=== PATIENT | male | born 1935 | race Hispanic/Latino ===

== ENCOUNTER 2022-06-10 09:41 | Inpatient (IN) | payer OTHER ==
[~2022-06-10] VITALS: Ht 162.6 cm; Wt 75.3 kg
[~2022-06-10 09:41] MED LIST: ETOMIDATE 20MG VIAL IVP ONE; ROCURONIUM BROMIDE 10MG/1ML 5ML VL IV ONE
[2022-06-10 10:14] LABS: ABG HCO3 18.8 mmol/L (21.0-28.0); ABG OXYGEN SATURATION 94.2 % (95.0-99.0); ABG PCO2 31 mmHg (35-48)
[2022-06-10 10:21] LABS: BASOPHILS % (AUTO) 0.3 % (0.0-5.0); EOSINOPHILS % (AUTO) 2.2 % (0.0-8.0); LYMPHOCYTES % (AUTO) 3.7 % (21.0-51.0); MEAN CORPUSCULAR HEMOGLOBIN 28.9 pg (27.0-33.0); MEAN CORPUSCULAR HGB CONC 34.1 g/dL (32.0-36.0); MEAN CORPUSCULAR VOLUME 84.9 fL (79-99); MONOCYTES % (AUTO) 5.7 % (3.0-13.0); NEUTROPHILS % (AUTO) 87.4 % (40.0-77.0); PLATELET COUNT (AUTO) 281 K/uL (130-400); RED BLOOD CELL COUNT(AUTO) 3.18 MIL/uL (4.50-6.20); RED CELL DISTRIBUTION WIDTH 13.9 % (11.0-15.5); WHITE BLOOD COUNT (AUTO) 11.9 K/uL (4.8-10.8)
[2022-06-10 10:30] LABS: CREATININE 3.1 mg/dL (0.5-1.5); POTASSIUM 4.2 mmol/L (3.5-5.1)
[2022-06-10 10:34] LABS: ALBUMIN 2.5 g/dL (3.5-5.0); TOTAL PROTEIN, SERUM 6.7 g/dL (6.0-8.3)
[2022-06-10] MEDS ORDERED: DEXAMETHASONE SOD PHOSPHATE 4 MG/ML 1ML VIAL IVP ONE (11:30)
[2022-06-10] MEDS ORDERED: ENOXAPARIN SODIUM 40 MG/0.4 ML SYRINGE SQ ONE (11:30)
[2022-06-10] MEDS ORDERED: 0.9%NACL 1000ML 1,000 ML IV ONE (11:30)
[2022-06-10] MEDS ORDERED: LEVO50CA4 PO (12:17)
[2022-06-10] MEDS ORDERED: APIX2.5T PO (12:17)
[2022-06-10] MEDS ORDERED: LABE200T7 PO (12:17)
[2022-06-10] MEDS ORDERED: ASCO500P18 PO (12:17)
[2022-06-10] MEDS ORDERED: AMLO-258 PO (12:17)
[2022-06-10] MEDS ORDERED: ZINC220T4 PO (12:17)
[2022-06-10] MEDS ORDERED: PRAV20TA4 PO (12:17)
[2022-06-10] MEDS ORDERED: ISOS20TA85 PO (12:17)
[2022-06-10] MEDS ORDERED: POTA99TA25 PO (12:17)
[2022-06-10] MEDS ORDERED: LISI20TA24 PO (12:17)
[2022-06-10] MEDS ORDERED: CHOL125C7 PO (12:20)
[2022-06-10] MEDS ORDERED: HYDRALAZINE 20MG/ML VIAL IV PRN (13:30)
[2022-06-10] MEDS ORDERED: ONDANSETRON 4MG INJ IVP PRN (13:30)
[2022-06-10] MEDS ORDERED: LABETALOL 20MG SYG IV PRN (13:30)
[2022-06-10] MEDS ORDERED: LACTULOSE 20 GM/30 ML UDCUP PO PRN (13:30)
[2022-06-10] MEDS ORDERED: ACETAMINOPHEN 325 MG TAB PO PRN (13:30)
[2022-06-10 13:53] LABS: APPEARANCE,URINE CLEAR (CLEAR); BILIRUBIN,URINE NEGATIVE (NEGATIVE); COLOR,URINE LIGHT-YELLOW (YELLOW); GLUCOSE, URINE (UA) NEGATIVE (NEGATIVE); KETONES,URINE NEGATIVE (NEGATIVE); LEUKOCYTE ESTERASE ,URINE NEGATIVE Leu/uL (NEGATIVE); NITRATE,URINE NEGATIVE (NEGATIVE); OCCULT BLOOD,URINE NEGATIVE (NEGATIVE); PROTEIN,URINE 10 mg/dL (NEGATIVE); UROBILINOGEN,URINE 0.2 mg/dL (0.2-1.0)
[2022-06-10] MEDS: IPRATROPIUM/ALBUTEROL SULFATE 3 ML SOLUTION IH SCH ×3 (13:59→22:00)
[2022-06-10] MEDS: SOLU-MEDROL 125MG VIAL IVP SCH ×2 (14:29→20:21)
[2022-06-10 15:19] VITALS: BP 162/72
[2022-06-10] MEDS: INSULIN HUMULIN R 100 UNIT/ML 3ML SQ SCH ×2 (15:52→20:24)
[2022-06-10] MEDS: CEFTRIAXONE 1G VIAL IVP SCH (17:01)
[2022-06-10 19:23] VITALS: BP 156/65
[2022-06-10] MEDS: HEPARIN 5,000 UNIT VIAL SQ SCH (20:22)
[2022-06-10 23:10] VITALS: BP 145/78
[2022-06-11] VITALS (7 sets, daily range): BP systolic 110–167; BP diastolic 45–79
[2022-06-11] MEDS: IPRATROPIUM/ALBUTEROL SULFATE 3 ML SOLUTION IH SCH ×6 (02:00→21:16)
[2022-06-11 03:58] LABS: BASOPHILS % (AUTO) 0.1 % (0.0-5.0); HEMATOCRIT 27.2 % (42-54); LYMPHOCYTES % (AUTO) 2.8 % (21.0-51.0); MEAN CORPUSCULAR HEMOGLOBIN 29.3 pg (27.0-33.0); MEAN CORPUSCULAR HGB CONC 34.2 g/dL (32.0-36.0); MEAN CORPUSCULAR VOLUME 85.8 fL (79-99); MONOCYTES % (AUTO) 1.8 % (3.0-13.0); NEUTROPHILS % (AUTO) 94.6 % (40.0-77.0); PLATELET COUNT (AUTO) 333 K/uL (130-400); RED BLOOD CELL COUNT(AUTO) 3.17 MIL/uL (4.50-6.20)
[2022-06-11 04:12] LABS: % IRON SATURATION 6.1 % (30-44)
[2022-06-11 04:20] LABS: B-TYPE NATRIURETIC PEPTIDE 852 pg/mL (0-100)
[2022-06-11] MEDS: SOLU-MEDROL 125MG VIAL IVP SCH ×3 (05:00→21:53)
[2022-06-11 05:02] LABS: CREATININE 2.7 mg/dL (0.5-1.5); MAGNESIUM 2.3 mg/dL (1.80-2.40); PHOSPHORUS 4.3 mg/dL (2.5-4.9); POTASSIUM 4.4 mmol/L (3.5-5.1); THYROID STIMULATING HORMONE 0.85 uIU/mL (0.36-3.74); URIC ACID 9.4 mg/dL (2.6-7.2)
[2022-06-11] MEDS: INSULIN HUMULIN R 100 UNIT/ML 3ML SQ SCH ×4 (05:33→21:54)
[2022-06-11] MEDS: AZITHROMYCIN 500MG+NS 250ML IV SCH (08:04)
[2022-06-11] MEDS: POLYETHYLENE GLYCOL 3350 17 GM POWD.PACK PO SCH (08:04)
[2022-06-11] MEDS: HEPARIN 5,000 UNIT VIAL SQ SCH ×2 (08:05→21:51)
[2022-06-11 08:35] LABS: APPEARANCE,URINE CLEAR (CLEAR); BILIRUBIN,URINE NEGATIVE (NEGATIVE); COLOR,URINE LIGHT-YELLOW (YELLOW); GLUCOSE, URINE (UA) NEGATIVE (NEGATIVE); KETONES,URINE NEGATIVE (NEGATIVE); LEUKOCYTE ESTERASE ,URINE NEGATIVE Leu/uL (NEGATIVE); NITRATE,URINE NEGATIVE (NEGATIVE); OCCULT BLOOD,URINE NEGATIVE (NEGATIVE); PH,URINE 5.5 (5.0-8.0); PROTEIN,URINE 70 mg/dL (NEGATIVE); RBC,URINE 0-1 /HPF (0-1); UROBILINOGEN,URINE 0.2 mg/dL (0.2-1.0); WBC,URINE 0-1 /HPF (0-1)
[2022-06-11 08:37] LABS: CREATININE,URINE RANDOM 79 mg/dL (30-135)
[2022-06-11] MEDS ORDERED: ENOXAPARIN SODIUM 30 MG/0.3 ML SQ SCH (09:00)
[2022-06-11] MEDS ORDERED: CEFTRIAXONE 1G VIAL IVP SCH (09:00)
[2022-06-11 09:08] LABS: SODIUM,URINE RANDOM < 14 mmol/l (40-220)
[2022-06-11] MEDS: CEFTRIAXONE 1G VIAL IVP SCH (16:56)
[2022-06-11] MEDS: GUAIFENESIN-CODEINE 5 ML SYRUP PO SCH (21:51)
[2022-06-12] MEDS: IPRATROPIUM/ALBUTEROL SULFATE 3 ML SOLUTION IH SCH ×5 (01:16→23:12)
[2022-06-12 04:00] VITALS: BP 145/75
[2022-06-12 04:13] LABS: ABG BASE EXCESS -2.9 mmol/L (-2.0-3.0); ABG HCO3 20.8 mmol/L (21.0-28.0); ABG OXYGEN SATURATION 90.9 % (95.0-99.0); ABG PCO2 33 mmHg (35-48)
[2022-06-12 04:55] LABS: HEMATOCRIT 26.5 % (42-54); MEAN CORPUSCULAR HEMOGLOBIN 29.6 pg (27.0-33.0); MEAN CORPUSCULAR HGB CONC 34.7 g/dL (32.0-36.0); MEAN CORPUSCULAR VOLUME 85.2 fL (79-99); PLATELET COUNT (AUTO) 399 K/uL (130-400); RED BLOOD CELL COUNT(AUTO) 3.11 MIL/uL (4.50-6.20); RED CELL DISTRIBUTION WIDTH 14.1 % (11.0-15.5); WHITE BLOOD COUNT (AUTO) 22.6 K/uL (4.8-10.8)
[2022-06-12 05:05] LABS: ALBUMIN 2.5 g/dL (3.5-5.0); MAGNESIUM 2.8 mg/dL (1.80-2.40); PHOSPHORUS 4.7 mg/dL (2.5-4.9); POTASSIUM 4.2 mmol/L (3.5-5.1); TOTAL PROTEIN, SERUM 6.6 g/dL (6.0-8.3)
[2022-06-12] MEDS: SOLU-MEDROL 125MG VIAL IVP SCH ×3 (05:07→21:06)
[2022-06-12] MEDS: INSULIN HUMULIN R 100 UNIT/ML 3ML SQ SCH ×4 (05:56→21:08)
[2022-06-12 06:05] LABS: BAND NEUTROPHILS % (MANUAL) 1 % (0-2); MONOCYTES % (MANUAL) 4 % (2-9); SEGMENTED NEUTROPHILS % 95 % (40-70)
[2022-06-12 06:06] LABS: MAN.DIFF COMMENT-IMPRESSION MANUAL DIFFERENTIAL; PLATELET MORPHOLOGY COMMENT ADEQUATE
[2022-06-12 08:00] VITALS: BP 163/61
[2022-06-12] MEDS ORDERED: IRON SUCROSE COMPLEX 100 MG in 0.9%NACL 50ML 50 ML IV SCH (09:00)
[2022-06-12] MEDS: HEPARIN 5,000 UNIT VIAL SQ SCH ×2 (10:15→21:07)
[2022-06-12] MEDS: AZITHROMYCIN 500MG+NS 250ML IV SCH (10:19)
[2022-06-12] MEDS: POLYETHYLENE GLYCOL 3350 17 GM POWD.PACK PO SCH (10:20)
[2022-06-12] MEDS: GUAIFENESIN-CODEINE 5 ML SYRUP PO SCH ×2 (10:21→21:05)
[2022-06-12] MEDS: IRON SUCROSE COMPLEX 100 MG/5 ML VIAL IVP SCH (10:21)
[2022-06-12 13:25] VITALS: BP 149/67
[2022-06-12 16:47] VITALS: BP 155/71
[2022-06-12] MEDS: CEFTRIAXONE 1G VIAL IVP SCH (17:45)
[2022-06-12 20:00] VITALS: BP 164/65
[2022-06-12 23:24] VITALS: BP 160/68
[2022-06-13 03:34] VITALS: BP 155/72
[2022-06-13 04:49] LABS: BASOPHILS % (AUTO) 0.2 % (0.0-5.0); HEMATOCRIT 28.2 % (42-54); MEAN CORPUSCULAR HEMOGLOBIN 28.7 pg (27.0-33.0); MONOCYTES % (AUTO) 1.8 % (3.0-13.0); NEUTROPHILS % (AUTO) 95.5 % (40.0-77.0); PLATELET COUNT (AUTO) 467 K/uL (130-400); RED BLOOD CELL COUNT(AUTO) 3.24 MIL/uL (4.50-6.20); RED CELL DISTRIBUTION WIDTH 14.6 % (11.0-15.5); WHITE BLOOD COUNT (AUTO) 20.6 K/uL (4.8-10.8)
[2022-06-13] MEDS: SOLU-MEDROL 125MG VIAL IVP SCH ×3 (04:58→20:45)
[2022-06-13 05:05] LABS: ALBUMIN 2.4 g/dL (3.5-5.0); CREATININE 1.9 mg/dL (0.5-1.5); TOTAL PROTEIN, SERUM 6.4 g/dL (6.0-8.3)
[2022-06-13] MEDS: IPRATROPIUM/ALBUTEROL SULFATE 3 ML SOLUTION IH SCH ×2 (06:20→11:15)
[2022-06-13] MEDS: INSULIN HUMULIN R 100 UNIT/ML 3ML SQ SCH ×4 (06:48→20:44)
[2022-06-13 07:00] VITALS: BP 155/66
[2022-06-13] MEDS: AZITHROMYCIN 500MG+NS 250ML IV SCH (09:13)
[2022-06-13] MEDS: FAMOTIDINE 20MG VIAL IV SCH (09:13)
[2022-06-13] MEDS: IRON SUCROSE COMPLEX 100 MG/5 ML VIAL IVP SCH (09:15)
[2022-06-13] MEDS: POLYETHYLENE GLYCOL 3350 17 GM POWD.PACK PO SCH (09:17)
[2022-06-13] MEDS: GUAIFENESIN-CODEINE 5 ML SYRUP PO SCH ×2 (09:17→20:45)
[2022-06-13] MEDS: HEPARIN 5,000 UNIT VIAL SQ SCH ×2 (09:19→20:47)
[2022-06-13 11:00] VITALS: BP 156/73
[2022-06-13] MEDS: CEFTRIAXONE 2GM VIAL IVP SCH (15:20)
[2022-06-13 16:00] VITALS: BP_SYST 167; BP_SYST 179; BP_DIAS 83; BP_DIAS 84
[2022-06-13] MEDS ORDERED: METOPROLOL TARTRATE 1 MG/ML 5ML VIAL IV ONE ×2 (17:05→17:30)
[2022-06-13] MEDS ORDERED: IPRATROPIUM 0.5 MG/2.5 ML INH IH PRN (17:30)
[2022-06-13 17:36] LABS: CREATININE 1.7 mg/dL (0.5-1.5); POTASSIUM 4.1 mmol/L (3.5-5.1)
[2022-06-13 17:40] LABS: ALBUMIN 2.6 g/dL (3.5-5.0); TOTAL PROTEIN, SERUM 6.7 g/dL (6.0-8.3)
[2022-06-13 19:56] VITALS: BP 144/81
[2022-06-13] MEDS: METOPROLOL TARTRATE 25 MG TAB PO SCH (20:45)
[2022-06-13 23:40] VITALS: BP 151/84
[2022-06-14 03:37] LABS: BASOPHILS % (AUTO) 0.1 % (0.0-5.0); HEMATOCRIT 29.6 % (42-54); LYMPHOCYTES % (AUTO) 1.2 % (21.0-51.0); MEAN CORPUSCULAR HGB CONC 33.4 g/dL (32.0-36.0); MEAN CORPUSCULAR VOLUME 86.8 fL (79-99); NEUTROPHILS % (AUTO) 94.9 % (40.0-77.0); PLATELET COUNT (AUTO) 463 K/uL (130-400); RED BLOOD CELL COUNT(AUTO) 3.41 MIL/uL (4.50-6.20); RED CELL DISTRIBUTION WIDTH 14.8 % (11.0-15.5); WHITE BLOOD COUNT (AUTO) 20.3 K/uL (4.8-10.8)
[2022-06-14 03:49] LABS: CREATININE 1.6 mg/dL (0.5-1.5); POTASSIUM 4.3 mmol/L (3.5-5.1)
[2022-06-14 04:00] VITALS: BP 133/89
[2022-06-14] MEDS: INSULIN HUMULIN R 100 UNIT/ML 3ML SQ SCH ×4 (05:09→20:20)
[2022-06-14] MEDS: SOLU-MEDROL 125MG VIAL IVP SCH ×3 (05:41→20:24)
[2022-06-14] MEDS: METOPROLOL TARTRATE 25 MG TAB PO SCH ×2 (06:25→20:21)
[2022-06-14] MEDS: POLYETHYLENE GLYCOL 3350 17 GM POWD.PACK PO SCH (07:49)
[2022-06-14] MEDS: GUAIFENESIN-CODEINE 5 ML SYRUP PO SCH ×2 (07:51→20:21)
[2022-06-14] MEDS: HEPARIN 5,000 UNIT VIAL SQ SCH (07:51)
[2022-06-14] MEDS: IRON SUCROSE COMPLEX 100 MG/5 ML VIAL IVP SCH (07:52)
[2022-06-14] MEDS: AZITHROMYCIN 500MG+NS 250ML IV SCH (07:52)
[2022-06-14] MEDS: FAMOTIDINE 20MG VIAL IV SCH (07:52)
[2022-06-14 08:00] VITALS: BP 142/86
[2022-06-14 12:00] VITALS: BP 136/78
[2022-06-14 16:00] VITALS: BP 128/76
[2022-06-14] MEDS: CEFTRIAXONE 2GM VIAL IVP SCH (17:30)
[2022-06-14 20:00] VITALS: BP 169/75
[2022-06-14] MEDS: APIXABAN 2.5 MG TABLET PO SCH (20:21)
[2022-06-14] MEDS: NICOTINE 21 MG/ 24 HR PATCH TD SCH ×2 (20:21→20:42)
[2022-06-14 23:57] VITALS: BP 173/86
[2022-06-15] VITALS (7 sets, daily range): BP systolic 143–188; BP diastolic 65–89
[2022-06-15] MEDS ORDERED: ALBUTEROL INHALER 90MCG/INH IH PRN (01:40)
[2022-06-15] MEDS ORDERED: ALBUTEROL INHALER 90MCG/INH IH ONE (01:42)
[2022-06-15 03:50] LABS: BASOPHILS % (AUTO) 0.1 % (0.0-5.0); HEMATOCRIT 28.5 % (42-54); LYMPHOCYTES % (AUTO) 1.3 % (21.0-51.0); MEAN CORPUSCULAR HEMOGLOBIN 28.8 pg (27.0-33.0); MEAN CORPUSCULAR VOLUME 87.4 fL (79-99); MONOCYTES % (AUTO) 2.5 % (3.0-13.0); NEUTROPHILS % (AUTO) 94.3 % (40.0-77.0); PLATELET COUNT (AUTO) 402 K/uL (130-400); RED BLOOD CELL COUNT(AUTO) 3.26 MIL/uL (4.50-6.20); RED CELL DISTRIBUTION WIDTH 15.1 % (11.0-15.5); WHITE BLOOD COUNT (AUTO) 18.1 K/uL (4.8-10.8)
[2022-06-15 04:12] LABS: ALBUMIN 2.5 g/dL (3.5-5.0); CREATININE 1.8 mg/dL (0.5-1.5); POTASSIUM 4.1 mmol/L (3.5-5.1); TOTAL PROTEIN, SERUM 6.1 g/dL (6.0-8.3)
[2022-06-15] MEDS: INSULIN HUMULIN R 100 UNIT/ML 3ML SQ SCH ×4 (04:24→21:19)
[2022-06-15] MEDS: SOLU-MEDROL 125MG VIAL IVP SCH ×3 (05:12→21:18)
[2022-06-15] MEDS: POLYETHYLENE GLYCOL 3350 17 GM POWD.PACK PO SCH (09:32)
[2022-06-15] MEDS: AZITHROMYCIN 500MG+NS 250ML IV SCH (09:33)
[2022-06-15] MEDS: METOPROLOL TARTRATE 25 MG TAB PO SCH (09:33)
[2022-06-15] MEDS: IRON SUCROSE COMPLEX 100 MG/5 ML VIAL IVP SCH (09:33)
[2022-06-15] MEDS: FAMOTIDINE 20MG VIAL IV SCH (09:33)
[2022-06-15] MEDS: APIXABAN 2.5 MG TABLET PO SCH ×2 (09:33→21:18)
[2022-06-15] MEDS: GUAIFENESIN-CODEINE 5 ML SYRUP PO SCH ×2 (09:59→21:17)
[2022-06-15] MEDS: IPRATROPIUM 0.5 MG/2.5 ML INH IH SCH ×3 (14:50→22:47)
[2022-06-15] MEDS: CEFTRIAXONE 2GM VIAL IVP SCH (16:04)
[2022-06-15] MEDS: NICOTINE 21 MG/ 24 HR PATCH TD SCH (20:53)
[2022-06-15] MEDS: ISOSORBIDE MONONITRATE 20 MG TABLET PO SCH (21:17)
[2022-06-15] MEDS: LABETALOL HCL 200 MG TABLET PO SCH (21:17)
[2022-06-15] MEDS ORDERED: DIAZEPAM 5 MG TABLET PO PRN (23:30)
[2022-06-15] MEDS ORDERED: FUROSEMIDE 20MG VIAL IV SCH (23:30)
[2022-06-16] VITALS (26 sets, daily range): BP systolic 104–168; BP diastolic 47–87
[2022-06-16] MEDS: IPRATROPIUM 0.5 MG/2.5 ML INH IH SCH ×2 (02:08→07:07)
[2022-06-16 04:35] LABS: BASOPHILS % (AUTO) 0.1 % (0.0-5.0); HEMATOCRIT 29.3 % (42-54); LYMPHOCYTES % (AUTO) 0.6 % (21.0-51.0); MEAN CORPUSCULAR HEMOGLOBIN 29.4 pg (27.0-33.0); MEAN CORPUSCULAR HGB CONC 33.4 g/dL (32.0-36.0); MONOCYTES % (AUTO) 2.2 % (3.0-13.0); NEUTROPHILS % (AUTO) 95.9 % (40.0-77.0); PLATELET COUNT (AUTO) 331 K/uL (130-400); RED BLOOD CELL COUNT(AUTO) 3.33 MIL/uL (4.50-6.20); RED CELL DISTRIBUTION WIDTH 15.5 % (11.0-15.5)
[2022-06-16 04:57] LABS: ALBUMIN 2.2 g/dL (3.5-5.0); CREATININE 1.9 mg/dL (0.5-1.5); CRP QUANTITATIVE 67.4 mg/L (0.00-9.0); POTASSIUM 3.8 mmol/L (3.5-5.1); TOTAL PROTEIN, SERUM 5.9 g/dL (6.0-8.3)
[2022-06-16] MEDS: INSULIN HUMULIN R 100 UNIT/ML 3ML SQ SCH ×4 (06:09→21:00)
[2022-06-16] MEDS: LEVOTHYROXINE 50 MCG TABLET PO SCH (06:23)
[2022-06-16] MEDS: SOLU-MEDROL 125MG VIAL IVP SCH ×3 (06:23→22:14)
[2022-06-16 08:18] LABS: MAGNESIUM 3.7 mg/dL (1.80-2.40); PHOSPHORUS 6.1 mg/dL (2.5-4.9)
[2022-06-16] MEDS: GUAIFENESIN-CODEINE 5 ML SYRUP PO SCH ×2 (09:10→20:44)
[2022-06-16] MEDS: POLYETHYLENE GLYCOL 3350 17 GM POWD.PACK PO SCH (09:10)
[2022-06-16] MEDS: IRON SUCROSE COMPLEX 100 MG/5 ML VIAL IVP SCH (09:10)
[2022-06-16] MEDS: FAMOTIDINE 20MG VIAL IV SCH (09:10)
[2022-06-16] MEDS: LABETALOL HCL 200 MG TABLET PO SCH ×2 (09:11→20:44)
[2022-06-16] MEDS: APIXABAN 2.5 MG TABLET PO SCH ×2 (09:11→20:44)
[2022-06-16 10:41] LABS: ABG BASE EXCESS -1.4 mmol/L (-2.0-3.0); ABG HCO3 22.8 mmol/L (21.0-28.0); ABG OXYGEN SATURATION 83.2 % (95.0-99.0); ABG PCO2 36 mmHg (35-48)
[2022-06-16] MEDS: FUROSEMIDE 40MG VIAL IV SCH ×2 (11:02→22:14)
[2022-06-16] MEDS: IPRATROPIUM/ALBUTEROL SULFATE 3 ML SOLUTION IH SCH ×3 (11:08→23:33)
[2022-06-16] MEDS: CEFEPIME HCL 1 GM VIAL IVP SCH ×2 (11:27→22:52)
[2022-06-16] MEDS: DOXYCYCLINE 100MG+NS 250ML IV SCH ×2 (11:27→22:15)
[2022-06-16] MEDS: METRONIDAZOLE 500MG/100ML BAG 100 ML IVPB SCH ×2 (13:50→22:15)
[2022-06-16] MEDS ORDERED: DIAZEPAM 5 MG TABLET PO ONE (16:30)
[2022-06-16 17:16] LABS: INR 1.08 (0.85-1.15); PROTHROMBIN TIME 11.7 SEC (9.6-11.6)
[2022-06-16 17:18] LABS: PARTIAL THROMBOPLASTIN TIME 26.8 SEC (26.3-35.5)
[2022-06-16] MEDS ORDERED: LORAZEPAM 2 MG/ML 1 ML VIAL IVP STA (19:31)
[2022-06-16] MEDS ORDERED: LORAZEPAM 2 MG/ML 1 ML VIAL ONE (19:35)
[2022-06-16] MEDS ORDERED: DEXMEDETOMIDINE 400MCG/NS100ML IV ONE (20:06)
[2022-06-16 20:11] LABS: ABG BASE EXCESS -11.7 mmol/L (-2.0-3.0); ABG HCO3 18.7 mmol/L (21.0-28.0); ABG PCO2 65 mmHg (35-48)
[2022-06-16] MEDS ORDERED: SODIUM BICARB 50MEQ 50ML VIAL 150 ML ONE (20:18)
[2022-06-16] MEDS ORDERED: SODIUM BICARB 50MEQ 50ML VIAL IV SCH (20:30)
[2022-06-16] MEDS ORDERED: 0.9% NACL 250ML 250 ML IV SCH (20:30)
[2022-06-16] MEDS: ISOSORBIDE MONONITRATE 20 MG TABLET PO SCH (20:44)
[2022-06-16] MEDS: NICOTINE 21 MG/ 24 HR PATCH TD SCH (21:00)
[2022-06-16] MEDS ORDERED: PROPOFOL 1000 MG/100 ML 100 ML IV ONE (21:01)
[2022-06-16] MEDS ORDERED: PROPOFOL 500 MG/ 50ML VIAL IV SCH (21:15)
[2022-06-16] MEDS ORDERED: MIDAZOLAM 100MG-0.9% NS 100ML 100ML BAG IV ONE (22:30)
[2022-06-16] MEDS ORDERED: FENTANYL 2500MCG+NS 250ML IV.SOLN IV SCH (22:30)
[2022-06-16 22:47] LABS: ABG BASE EXCESS -0.2 mmol/L (-2.0-3.0); ABG HCO3 29.9 mmol/L (21.0-28.0); ABG OXYGEN SATURATION 96.8 % (95.0-99.0); ABG PCO2 75 mmHg (35-48)
[2022-06-17] VITALS (71 sets, daily range): BP systolic 91–148; BP diastolic 37–60
[2022-06-17] MEDS ORDERED: ETOMIDATE 20MG VIAL IVP SCH (01:00)
[2022-06-17] MEDS: SOLU-MEDROL 125MG VIAL IVP SCH ×3 (04:59→20:48)
[2022-06-17] MEDS: LEVOTHYROXINE 50 MCG TABLET PO SCH (05:01)
[2022-06-17] MEDS: METRONIDAZOLE 500MG/100ML BAG 100 ML IVPB SCH ×3 (05:01→21:55)
[2022-06-17 05:16] LABS: HEMATOCRIT 29.7 % (42-54); MEAN CORPUSCULAR HEMOGLOBIN 29.4 pg (27.0-33.0); PLATELET COUNT (AUTO) 216 K/uL (130-400); RED BLOOD CELL COUNT(AUTO) 3.23 MIL/uL (4.50-6.20); RED CELL DISTRIBUTION WIDTH 16.5 % (11.0-15.5)
[2022-06-17 05:26] LABS: WHITE BLOOD COUNT (AUTO) 36.3 K/uL (4.8-10.8)
[2022-06-17 05:28] LABS: CREATININE 2.2 mg/dL (0.5-1.5); POTASSIUM 5.7 mmol/L (3.5-5.1)
[2022-06-17 05:56] LABS: LYMPHOCYTES % (MANUAL) 1 % (22-44); SEGMENTED NEUTROPHILS % 99 % (40-70)
[2022-06-17 05:57] LABS: MAN.DIFF COMMENT-IMPRESSION MANUAL DIFFERENTIAL; PLATELET MORPHOLOGY COMMENT ADEQUATE
[2022-06-17] MEDS: IPRATROPIUM/ALBUTEROL SULFATE 3 ML SOLUTION IH SCH ×4 (06:35→23:09)
[2022-06-17] MEDS: INSULIN HUMULIN R 100 UNIT/ML 3ML SQ SCH ×4 (06:43→20:06)
[2022-06-17] MEDS ORDERED: KAYEXALATE 15GM/60ML PO SCH (09:00)
[2022-06-17] MEDS: LABETALOL HCL 200 MG TABLET PO SCH ×2 (09:00→20:06)
[2022-06-17 09:41] LABS: ABG HCO3 25.8 mmol/L (21.0-28.0); ABG OXYGEN SATURATION 97.9 % (95.0-99.0); ABG PCO2 58 mmHg (35-48)
[2022-06-17] MEDS: POLYETHYLENE GLYCOL 3350 17 GM POWD.PACK PO SCH (09:45)
[2022-06-17] MEDS: APIXABAN 2.5 MG TABLET PO SCH ×2 (09:45→20:48)
[2022-06-17] MEDS: GUAIFENESIN-CODEINE 5 ML SYRUP PO SCH ×2 (09:45→20:06)
[2022-06-17] MEDS: IRON SUCROSE COMPLEX 100 MG/5 ML VIAL IVP SCH (09:45)
[2022-06-17] MEDS: CEFEPIME HCL 1 GM VIAL IVP SCH ×2 (09:45→21:54)
[2022-06-17] MEDS: FAMOTIDINE 20MG VIAL IV SCH (09:45)
[2022-06-17] MEDS: DOXYCYCLINE 100MG+NS 250ML IV SCH ×2 (09:45→21:54)
[2022-06-17] MEDS: FUROSEMIDE 40MG VIAL IV SCH ×2 (09:46→21:55)
[2022-06-17] MEDS ORDERED: FENTANYL 2500MCG+NS 250ML 250 ML IV SCH (19:30)
[2022-06-17] MEDS: NICOTINE 21 MG/ 24 HR PATCH TD SCH (20:06)
[2022-06-17] MEDS: ISOSORBIDE MONONITRATE 20 MG TABLET PO SCH (20:06)
[2022-06-18] VITALS (93 sets, daily range): BP systolic 96–176; BP diastolic 39–76
[2022-06-18] MEDS ORDERED: MIDAZOLAM 100MG-0.9% NS 100ML 100ML BAG IV ONE (04:00)
[2022-06-18 04:28] LABS: HEMATOCRIT 27.8 % (42-54); MEAN CORPUSCULAR HEMOGLOBIN 29.1 pg (27.0-33.0); MEAN CORPUSCULAR VOLUME 90.8 fL (79-99); PLATELET COUNT (AUTO) 176 K/uL (130-400); RED BLOOD CELL COUNT(AUTO) 3.06 MIL/uL (4.50-6.20); RED CELL DISTRIBUTION WIDTH 16.8 % (11.0-15.5)
[2022-06-18 04:45] LABS: WHITE BLOOD COUNT (AUTO) 31.5 K/uL (4.8-10.8)
[2022-06-18 04:46] LABS: ALBUMIN 1.7 g/dL (3.5-5.0); CREATININE 3.6 mg/dL (0.5-1.5); MAGNESIUM 3.7 mg/dL (1.80-2.40); PHOSPHORUS 9.7 mg/dL (2.5-4.9); POTASSIUM 4.8 mmol/L (3.5-5.1); TOTAL PROTEIN, SERUM 5.3 g/dL (6.0-8.3)
[2022-06-18 05:05] LABS: LYMPHOCYTES % (MANUAL) 1 % (22-44); MONOCYTES % (MANUAL) 1 % (2-9); SEGMENTED NEUTROPHILS % 98 % (40-70)
[2022-06-18 05:06] LABS: MAN.DIFF COMMENT-IMPRESSION MANUAL DIF; PLATELET MORPHOLOGY COMMENT ADEQUATE
[2022-06-18] MEDS: METRONIDAZOLE 500MG/100ML BAG 100 ML IVPB SCH ×3 (05:10→20:41)
[2022-06-18] MEDS: SOLU-MEDROL 125MG VIAL IVP SCH ×3 (05:10→20:41)
[2022-06-18] MEDS: LEVOTHYROXINE 50 MCG TABLET PO SCH (05:37)
[2022-06-18] MEDS ORDERED: PROPOFOL 1000 MG/100 ML 100 ML IV ONE (06:09)
[2022-06-18] MEDS: INSULIN HUMULIN R 100 UNIT/ML 3ML SQ SCH ×4 (06:20→20:37)
[2022-06-18] MEDS ORDERED: PROPOFOL 1000 MG/100 ML IV STA (06:21)
[2022-06-18] MEDS: IPRATROPIUM/ALBUTEROL SULFATE 3 ML SOLUTION IH SCH ×3 (07:23→23:58)
[2022-06-18] MEDS: IRON SUCROSE COMPLEX 100 MG/5 ML VIAL IVP SCH (08:01)
[2022-06-18] MEDS: GUAIFENESIN-CODEINE 5 ML SYRUP PO SCH ×2 (08:01→20:34)
[2022-06-18] MEDS: FAMOTIDINE 20MG VIAL IV SCH (08:01)
[2022-06-18] MEDS: APIXABAN 2.5 MG TABLET PO SCH ×2 (08:01→20:34)
[2022-06-18] MEDS: LABETALOL HCL 200 MG TABLET PO SCH ×2 (08:02→20:35)
[2022-06-18] MEDS: FUROSEMIDE 40MG VIAL IV SCH (09:32)
[2022-06-18] MEDS: DOXYCYCLINE 100MG+NS 250ML IV SCH ×2 (09:32→20:35)
[2022-06-18] MEDS: CEFEPIME HCL 1 GM VIAL IVP SCH ×2 (09:32→20:35)
[2022-06-18] MEDS: PROPOFOL 1000 MG/100 ML 100 ML IV PRN ×3 (09:45→22:55)
[2022-06-18] MEDS ORDERED: DEXTROSE 5%-WATER 1,000 ML IV SCH (18:00)
[2022-06-18] MEDS: NICOTINE 21 MG/ 24 HR PATCH TD SCH (20:33)
[2022-06-18] MEDS: ISOSORBIDE MONONITRATE 20 MG TABLET PO SCH (20:35)
[2022-06-19] VITALS (27 sets, daily range): BP systolic 86–208; BP diastolic 28–161
[2022-06-19 03:42] LABS: HEMATOCRIT 28.5 % (42-54); MEAN CORPUSCULAR HEMOGLOBIN 29.3 pg (27.0-33.0); MEAN CORPUSCULAR HGB CONC 32.3 g/dL (32.0-36.0); MEAN CORPUSCULAR VOLUME 90.8 fL (79-99); NUCLEATED RED BLOOD CELLS 0.1 % (0.0-0.19); PLATELET COUNT (AUTO) 187 K/uL (130-400); RED BLOOD CELL COUNT(AUTO) 3.14 MIL/uL (4.50-6.20); RED CELL DISTRIBUTION WIDTH 17.3 % (11.0-15.5)
[2022-06-19 03:47] LABS: WHITE BLOOD COUNT (AUTO) 32.9 K/uL (4.8-10.8)
[2022-06-19 04:01] LABS: ALBUMIN 1.8 g/dL (3.5-5.0); MAGNESIUM 4.1 mg/dL (1.80-2.40); POTASSIUM 4.8 mmol/L (3.5-5.1); TOTAL PROTEIN, SERUM 5.4 g/dL (6.0-8.3)
[2022-06-19 04:37] LABS: LYMPHOCYTES % (MANUAL) 2 % (22-44); MAN.DIFF COMMENT-IMPRESSION MANUAL DIFFERENTIAL; PLATELET MORPHOLOGY COMMENT ADEQUATE; SEGMENTED NEUTROPHILS % 98 % (40-70)
[2022-06-19] MEDS: SOLU-MEDROL 125MG VIAL IVP SCH (05:07)
[2022-06-19] MEDS: METRONIDAZOLE 500MG/100ML BAG 100 ML IVPB SCH (05:07)
[2022-06-19] MEDS: IPRATROPIUM/ALBUTEROL SULFATE 3 ML SOLUTION IH SCH (06:32)
[2022-06-19] MEDS: INSULIN HUMULIN R 100 UNIT/ML 3ML SQ SCH ×2 (06:41→11:11)
[2022-06-19] MEDS: LEVOTHYROXINE 50 MCG TABLET PO SCH (06:41)
[2022-06-19] MEDS: LABETALOL HCL 200 MG TABLET PO SCH (09:00)
[2022-06-19] MEDS: GUAIFENESIN-CODEINE 5 ML SYRUP PO SCH (09:00)
[2022-06-19] MEDS ORDERED: DEXTROSE 5%-WATER 1,000 ML IV ONE (09:19)
[2022-06-19] MEDS: IRON SUCROSE COMPLEX 100 MG/5 ML VIAL IVP SCH (09:22)
[2022-06-19] MEDS: FAMOTIDINE 20MG VIAL IV SCH (09:22)
[2022-06-19] MEDS: APIXABAN 2.5 MG TABLET PO SCH (09:23)
[2022-06-19] MEDS: PROPOFOL 1000 MG/100 ML 100 ML IV PRN (09:25)
[2022-06-19] MEDS ORDERED: DEXTROSE 5%-WATER 1,000 ML IV SCH (09:30)
[2022-06-19] MEDS: DOXYCYCLINE 100MG+NS 250ML IV SCH (10:30)
[2022-06-19] MEDS: CEFEPIME HCL 1 GM VIAL IVP SCH (10:30)
[2022-06-19] MEDS ORDERED: MORPHINE 2 MG SYG IVP PRN ×2 (11:00→13:00)
[2022-06-19] MEDS ORDERED: LORAZEPAM 2 MG/ML 1 ML VIAL IVP PRN ×2 (11:00→13:00)
[2022-06-19] MEDS ORDERED: GLYCOPYRROLATE 1 MG/5 ML SYRINGE IV PRN (11:00)
== END 2022-06-19 14:15 | DRG 208 ==
LOC: EDH 09:41 → OBSVTOIN 13:21 → EDHIP 13:21 → INTOOBSV 13:21 → 2AH 15:13 → 2BH 06-16 19:50
PROVIDERS: ADMIT Internal Medicine; ATTEND Internal Medicine
PROC: 5A0935A Assistance with Respiratory Ventilation, Less than 24 Consecutive Hours, High Flow/Velocity Cannula (ICD-10-PCS; 2022-06-10)
PROC: 5A0935A Assistance with Respiratory Ventilation, Less than 24 Consecutive Hours, High Flow/Velocity Cannula (ICD-10-PCS; 2022-06-11)
PROC: 5A0935A Assistance with Respiratory Ventilation, Less than 24 Consecutive Hours, High Flow/Velocity Cannula (ICD-10-PCS; 2022-06-12)
PROC: 5A0935A Assistance with Respiratory Ventilation, Less than 24 Consecutive Hours, High Flow/Velocity Cannula (ICD-10-PCS; 2022-06-13)
PROC: 5A0935A Assistance with Respiratory Ventilation, Less than 24 Consecutive Hours, High Flow/Velocity Cannula (ICD-10-PCS; 2022-06-14)
PROC: 5A0935A Assistance with Respiratory Ventilation, Less than 24 Consecutive Hours, High Flow/Velocity Cannula (ICD-10-PCS; 2022-06-15)
PROC: 5A1945Z Respiratory Ventilation, 24-96 Consecutive Hours (ICD-10-PCS; principal; 2022-06-16)
PROC: 0BH17EZ Insertion of Endotracheal Airway into Trachea, Via Natural or Artificial Opening (ICD-10-PCS; 2022-06-16)
PROC: 5A09357 Assistance with Respiratory Ventilation, Less than 24 Consecutive Hours, Continuous Positive Airway Pressure (ICD-10-PCS; 2022-06-16)
PROC: 5A0935A Assistance with Respiratory Ventilation, Less than 24 Consecutive Hours, High Flow/Velocity Cannula (ICD-10-PCS; 2022-06-16)
DX: U07.1 COVID-19 (principal); J96.01 Acute respiratory failure with hypoxia; E43 Unspecified severe protein-calorie malnutrition; J12.82 Pneumonia due to coronavirus disease 2019; I50.33 Acute on chronic diastolic (congestive) heart failure; J15.0 Pneumonia due to Klebsiella pneumoniae; E87.1 Hypo-osmolality and hyponatremia; I13.0 Hypertensive heart and chronic kidney disease with heart failure and stage 1 through stage 4 chronic kidney disease, or unspecified chronic kidney disease; N18.4 Chronic kidney disease, stage 4 (severe); N17.9 Acute kidney failure, unspecified; I48.20 Chronic atrial fibrillation, unspecified; E87.0 Hyperosmolality and hypernatremia; J44.0 Chronic obstructive pulmonary disease with (acute) lower respiratory infection; E03.9 Hypothyroidism, unspecified; D50.9 Iron deficiency anemia, unspecified; E11.22 Type 2 diabetes mellitus with diabetic chronic kidney disease; E78.00 Pure hypercholesterolemia, unspecified; I27.20 Pulmonary hypertension, unspecified; I35.0 Nonrheumatic aortic (valve) stenosis; Z68.28 Body mass index [BMI] 28.0-28.9, adult
CPT/HCPCS: 31500; 36415; 36600; 71045; 74018; 76770; 80048; 80053; 81001; 81003; 82435; 82570; 82728; 82803; 82947; 82948; 83540; 83550; 83605; 83735; 83880; 83935; 84100; 84132; 84145; 84295; 84300; 84443; 84484; 84550; 85018; 85025; 85027; 85378; 85610; 85730; 86140; 87040; 87071; 87077; 87186; 87205; 87635; 87804; 93005; 93306; 94002; 94003; 94640; 94660; 94664; 94667; 94668; 99291; C1751; C1894; C9803; G0378; J0456; J0692; J0696; J1100; J1644; J1650; J1756; J1815; J1940; J2060; J2704; J2930; J3010; J3490; J7030; J7070